=== PATIENT | female | born 1960 | race Caucasian/White ===

== ENCOUNTER 2024-11-04 19:36 | Emergency (ER) | payer SELFPAY ==
[2024-11-04 19:39] VITALS: BP 122/71
--- NOTE | 2024-11-04 21:03 | ED.GENMED ---
History of Present Illness
General
Chief Complaint: Back Pain
Source: patient
Exam Limitations: none
Time Seen by Provider: 11/04/24 20:59
History of Present Illness
History of Present Illness:
See MDM
Past History
Past History
ED Past Medical History: None
ED Past Surgical History: None
Social History
Tobacco: Non-smoker
Alcohol: None
Phy Exam
Physical Exam
Physical Exam:
See MDM
Course
Vital Signs
Initial and Last Documented VS:
Initial Vital Signs
Temp Pulse Resp BP Pulse Ox
98.4 F 95 18 122/71 99
11/04/24 19:39 11/04/24 19:39 11/04/24 19:39 11/04/24 19:39 11/04/24 19:39
Last Documented Vital Signs
Temp Pulse Resp BP Pulse Ox
98.4 F 95 18 122/71 99
11/04/24 19:39 11/04/24 19:39 11/04/24 20:22 11/04/24 19:39 11/04/24 19:39
MDM/Problems Addressed
Differential Diagnosis Includes:
HPI and MDM Narrative:
64-year-old female presenting for evaluation of back pain. Patient apparently is unhoused and was dropped off for evaluation. Went into the room, patient already started yelling at me. She states she complains of back pain and I offered to
examination her and she refused. Patient is requesting to go home. When I asked why she came to the emergency department, patient states she was forced and was dropped off. Patient states she wants to go home. I explained my concern that she is
unhoused. Her response was 'that is none of your business'. I then asked where she is going to sleep tonight. Patient states she is going to a [facility]. Patient is awake and alert and oriented. She has no focal neurodeficits on nonphysical exam.
Patient will not let me examine her. She is moving all 4 extremities. She has no aphasia or facial droop. Patient is ambulating without difficulty.
Physical exam
General: Disheveled
HEENT: protecting airway
Neck: appears supple
CV: No evidence of cyanosis
Resp: No accessory muscle use
Abd: Non-distended
Extremities: No deformities
Neuro: alert. Moving all 4 extremities. No focal deficits
Psych: Agitated
Skin: Intact
Problems Addressed including Acute and Chronic Conditions affecting care:
1. Back pain
Acuity: acute
Prognosis: stable
Details: Patient will not let me examine her. She is ambulate without difficulty. I offered workup and x-ray and patient declined
2. Agitation
Acuity: acute
Prognosis: stable
Details: Potentially underlying mental health issues. Patient declining any services. She denies suicidal or homicidal ideations
Differential Diagnosis (but not limited to): Musculoskeletal back pain, schizophrenia, brain mass
Testing considered: Blood work, CT head, lumbar x-ray
Drug therapy (if applicable): OTC meds, please see d/c instruction regarding Rx drugs
Amount and/or Complexity of Data Reviewed
Clinical info obtained from: Patient
External data reviewed: N/A
Labs I independently reviewed (but not limited to): N/A
Radiology: N/A
Pulse Ox: not hypoxic
EKG independently reviewed: N/A
Data Warehouse Consultant: N/A
Critical Care: N/A
Risk of Complication:
Social Determinants of health: Poor social support
Discussed with other providers: N/A
Escalation of Care includes Admit/Obs: The patient demanding to be discharged despite multiple attempts to perform physical exam and obtain testing. Patient left without written discharge instructions. She was given verbal instructions
Occasional wrong word or 'sound a like' substitutions may have occurred due to the inherent limitations of voice recognition software. Read the chart carefully and recognize, using context, where substitutions have occurred.
*Critical Care Note
Total Time (30-74mins, 75-104mins- exclusive of procedures): Not Applicable
ED Attending Note
-
Portions of this chart may have been created with voice recognition software.� Occasional wrong word or��sound alike� substitutions may have occurred due to the inherent limitations of voice recognition software.
Discharge Plan
Departure
Patient Disposition: Home (Routine Discharge)
Date of Disposition: 11/04/24
Time of Disposition: 21:07
Patient with high blood pressure during this ER visit?: No
Discharge Problem:
Back pain
Interventions
Interventions:
*Risk Screen - Suicide Last Done: 11/04/24 19:39
*General Assessment Last Done: 11/04/24 19:39
*Neglect/Abuse Screening Last Done: 11/04/24 19:39
*ED COVID-19 Vaccine History Last Done: 11/04/24 20:33
Discharge Date and Time
Print Language: ICELANDIC
== END 2024-11-04 21:22 | disposition home or self-care (01) ==
LOC: EMR 19:36
PROVIDERS: EMERGENCY PHYSICIAN Student in an Organized Health Care Education/Training Program
DX: M54.9 Dorsalgia, unspecified (principal); R45.1 Restlessness and agitation; Z59.01 Sheltered homelessness; Z63.9 Problem related to primary support group, unspecified
CPT/HCPCS: 99281

== ENCOUNTER 2024-11-05 00:11 | Emergency (ER) | payer SELFPAY ==
[2024-11-05 00:17] VITALS: BP 138/82
--- NOTE | 2024-11-05 02:37 | ED.GENMED ---
History of Present Illness
<TRINH Mooney - Last Filed: 11/05/24 03:05>
General
Chief Complaint: Fall
Source: patient
Time Seen by Provider: 11/05/24 02:24
Nursing documentation reviewed up to this point in time: agreed with
History of Present Illness
History of Present Illness:
Pt is a 64 yo F who presents to the ED via EMS after a fall. Pt was seen in ED for back pain around 21:00 and declined to be examined by the physician or have imaging performed. Pt now states that she fell down stairs at an [employer]
restaurant. She states that she fell to her knees. Pt states that she has dizziness, leg pain, and back pain. She states that the back pain is along her entire spine. Pt states that she has a headache and sinusitis. Pt seen walking with a normal
gait and moving all extremities on encounter. While taking the history, patient began to talk about her friend and did not answer further questions about her symptoms.
Past History
<TRINH Mooney - Last Filed: 11/05/24 03:05>
Past History
ED Past Medical History: None
ED Past Surgical History: None
Social History
Tobacco: Non-smoker
Alcohol: None
Review of Systems
<TRINH Mooney - Last Filed: 11/05/24 03:05>
Review of Systems
Allergies reviewed?: Yes
Constitutional: Reports no symptoms
Cardiac: Reports no symptoms
Musculoskeletal: Reports back pain and other (leg pain)
Neurological: Reports dizzy
Phy Exam
<TRINH Mooney - Last Filed: 11/05/24 03:05>
General Physical Exam
General Presentation: no apparent distress
General age: appears stated age
General Skin: warm
General Habitus: normal
General Mental: angry
Neurological Exam
Neurological Exam: alert, no motor deficits, speech normal and normal gait
Musculoskeletal Exam
Musculoskeletal Exam: full ROM
Psychiatric Exam
Psychiatric Exam: agitated
Course
<TRINH Mooney - Last Filed: 11/05/24 03:05>
Vital Signs
Initial and Last Documented VS:
Initial Vital Signs
Temp Pulse Resp BP Pulse Ox
97.4 F 82 20 138/82 97
11/05/24 00:17 11/05/24 00:17 11/05/24 00:17 11/05/24 00:17 11/05/24 00:17
Last Documented Vital Signs
Temp Pulse Resp BP Pulse Ox
97.4 F 82 20 138/82 97
11/05/24 00:17 11/05/24 00:17 11/05/24 00:17 11/05/24 00:17 11/05/24 00:17
<Chidi Alberts DO - Last Filed: 11/05/24 04:39>
Vital Signs
Initial and Last Documented VS:
Initial Vital Signs
Temp Pulse Resp BP Pulse Ox
97.4 F 82 20 138/82 97
11/05/24 00:17 11/05/24 00:17 11/05/24 00:17 11/05/24 00:17 11/05/24 00:17
Last Documented Vital Signs
Temp Pulse Resp BP Pulse Ox
97.4 F 82 20 138/82 97
11/05/24 00:17 11/05/24 00:17 11/05/24 00:17 11/05/24 00:17 11/05/24 00:17
<TRINH Mooney - Last Filed: 11/05/24 03:05>
MDM/Problems Addressed
Differential Diagnosis Includes:
Muscle pain, back strain
<TRINH Mooney - Last Filed: 11/05/24 03:05>
*Critical Care Note
Total Time (30-74mins, 75-104mins- exclusive of procedures): Not Applicable
ED Attending Note
<TRINH Mooney - Last Filed: 11/05/24 03:05>
-
Portions of this chart may have been created with voice recognition software.� Occasional wrong word or��sound alike� substitutions may have occurred due to the inherent limitations of voice recognition software.
<Chidi Alberts DO - Last Filed: 11/05/24 04:39>
ED Attending Note
Patient seen and examined by attending physician: Yes
I performed the substantive portion of visit, reviewed & personally made and approve the management plan that is documented in note by myself or CINDY.: Yes
ED Attending Note:
64 female presents to the emergency department due to subacute leg pain. She was seen earlier in the evening and left. She came back tonight and at the time of my history and physical, patient stated that she had not urinated on herself and wanted
a place to clean up. She states that she is homeless and wanted a place to sleep tonight. She left the emergency department from her first visit around 10 PM which was too late to get to the senior living so she walked into town and called 911 when her
leg pain was exacerbated. Denies any current symptoms. Reports no chest pain or shortness of breath. Patient was seen in conjunction with the PA student. I have reviewed and agree with the history and treatment plan presented. On my independent
physical exam, patient is awake, alert, and oriented x3 ambulating around the department. Heart is regular rate and rhythm abdomen is soft with mild tenderness.
As mentioned previously, patient was ambulating around the room. After I saw her she eloped and walked out of the emergency department to sleep in the waiting room.
Discharge Plan
Departure
Patient Disposition: Elopement
Date of Disposition: 11/05/24
Time of Disposition: 04:28
Patient with high blood pressure during this ER visit?: No
Condition: Fair
Discharge Problem:
Homeless
Instructions: Preventing falls in adults
Referrals:
Ed Schultz [Active] - Next open appointment
Mann Montes De Oca DO [Family Provider] -
Hospital Transfer
I certify that the patient requires transfer: No
Interventions
Interventions:
*Risk Screen - Suicide Last Done: 11/05/24 00:17
*Neglect/Abuse Screening Last Done: 11/05/24 00:17
Discharge Date and Time
Print Language: ROMANIAN
== END 2024-11-05 05:30 | disposition left against medical advice (07) ==
LOC: EMR 00:11
PROVIDERS: EMERGENCY PHYSICIAN Student in an Organized Health Care Education/Training Program; FAMILY PHYSICIAN Family Medicine
DX: M54.9 Dorsalgia, unspecified (principal); W10.9XXA Fall (on) (from) unspecified stairs and steps, initial encounter; G47.00 Insomnia, unspecified; Z59.00 Homelessness unspecified
CPT/HCPCS: 99282